=== PATIENT | female | born 1955 | race Caucasian/White ===

== ENCOUNTER 2021-02-11 10:06 | Outpatient (CLI) | payer MEDICARE, SELFPAY ==
--- NOTE | 2021-02-11 10:18 | MM_ITS ---
WS: [id number] Exam: [id number] Date/Time of Exam: 02/11/2021 10:22 AM Reason For Exam: SCREENING VIEWS: MLO and CC views both breasts. Comparison made with prior exam of 07/16/2004, 05/14/2013.. Findings: There was no sign of mass, architectural distortion or suspicious calcification in either breast. Fa tty MM/[id number] Impression: BI-RADS: 2-Benign FOLLOW-UP: 1 Year Follow-up This mammogram was also analyzed by the Computer Aided Detection System R2 Imag e Jewel Oliving Machine Operator.
== END 2021-02-11 10:07 | disposition home or self-care (01) ==
LOC: RADSHAW 10:14
PROVIDERS: PCP Family Medicine; Visit Provider Family Medicine
DX: Z12.31 Encounter for screening mammogram for malignant neoplasm of breast (principal)
CPT/HCPCS: 77067

== ENCOUNTER 2021-04-28 10:55 | Outpatient (CLI) | payer MEDICARE, SELFPAY ==
--- NOTE | 2021-04-28 11:00 | XR_ITS ---
WS: [id number] SCREENING DEXA SCAN [employer] CLINICAL INFORMATION: POST MENOPAUSAL COMPARISON: None. FINDINGS: The L1-L4 bone mineral density measures 1.082 g/cm2. This corresponds to a T score score of -0.8 and Z score of 0.0. Left femoral neck bone mineral density measures 0.996 g/cm2. This corresponds to a T score of -0.1 an d Z score of 0.6. Right femoral neck bone mineral density measures 0.948 g/cm2. This corresponds to a T score -0.5of an d Z score of 0.2. Mean femoral neck bone mineral density measures 0.972 g/cm2. This corresponds to a T score of -0.3 an d Z score of 0.4. XR/XR DEXA axial skeleton* [id number] IMPRESSION: Normal bone mineralization. Patient's FRAX calculated 10 year probability for major osteoporotic fracture i s 12.4 % and osteoporotic hip fracture is 0.8%.
== END 2021-04-28 10:56 | disposition home or self-care (01) ==
PROVIDERS: PCP Family Medicine; Visit Provider Physician Assistant
DX: Z78.0 Asymptomatic menopausal state (principal)
CPT/HCPCS: 77080

== ENCOUNTER 2021-09-17 06:00 | Outpatient (RCR) | payer MEDICARE, SELFPAY | END 2021-10-16 23:59 | disposition home or self-care (01) | LOC: SPT 06:00 | PROVIDERS: PCP Family Medicine; Referring Provider Family Medicine; Visit Provider Family Medicine | DX: M54.12 Radiculopathy, cervical region (principal) | CPT/HCPCS: 97110; 97162 ==

== ENCOUNTER 2021-10-17 | Outpatient (RCR) | payer MEDICARE, SELFPAY | END 2021-11-16 23:59 | disposition home or self-care (01) | LOC: SPT | PROVIDERS: PCP Family Medicine; Referring Provider Family Medicine; Visit Provider Family Medicine | DX: M54.12 Radiculopathy, cervical region (principal) | CPT/HCPCS: 97110 ==

== ENCOUNTER 2023-05-11 11:35 | Inpatient (IN) | payer MEDICARE, SELFPAY ==
[2023-05-11] VITALS (44 sets, daily range): BP systolic 95–181; BP diastolic 64–116; PULSE 98–136; RESP 14–30; TEMP 36.7; O2SAT 78–99; BMI 28.1; BMI 27.8
--- NOTE | 2023-05-11 11:35 | XRR_ITS ---
PROCEDURE INFORMATION: Exam: XR Chest Exam date and time: 05/11/2023 11:49 AM Age: 68 years old Clinical indication: Cough; Additional info: Dyspnea/cough TECHNIQUE: Imaging protocol: Radiologic exam of the chest. Views: 1 view. COMPARISON: CT angio chest PE protcl [id number] 11/03/2018 7:03 PM FINDINGS: Lungs: Unremarkable. No consolidation. Pleural spaces: Unremarkable. No pleural effusion. No pneumothorax. Heart/Mediastinum: Unremarkable. No cardiomegaly. Bones/joints: Unremarkable. XR/XR chest 1V portable [id number] IMPRESSION: No acute findings.
--- NOTE | 2023-05-11 11:42 | ECG_ITS ---
[facility] Test Date: 2023-05-11 Pat Name: Yoon Moss Department: Room: ICU03 Gender: Female Impression Printer: : [id number] Requested By: Chriss Gilliam Order Number: [id number] Reading MD: Cabrera Negrete M.D. Measurements Intervals [place] Rate: 126 P: 83 CO: 148 QRS: 53 QRSD: 91 T: 75 QT: 292 QTc: 423 Interpretive Statements SINUS TACHYCARDIA with occasional PVC SEPTAL MYOCARDIAL INFARCTION , PROBABLY OLD [40+ ms Q WAVE IN V1/V2] Compared to ECG 11/03/2018 22:57:14 Heart rate is sinus tachycardia with PVCs. Electronically Signed On 05-12-2023 14:20:54 DOMESTIC LAUNDRY WORKER by Cabrera Negrete M.D. [email or web address] general [email or web address] [email or web address]/[id number] f
--- NOTE | 2023-05-11 11:47 | ED_ITS ---
HPI - SOB/Dyspnea General: Chief Complaint: Shortness of Breath/Dyspnea Stated Complaint: sob Time Seen by Provider: 05/11/23 11:35 Source: patient History of Present Illness: HPI Narrative: 60-year-old female presents emergency room with shortness of breath. She was given DuoNebs and dexamethasone in route. She has a history of COPD for last 2 days she has been been progressively more short of breath she has some moderate productive cough. She has not had any vomiting or diarrhea or fever. MD elicited complaint: shortness of breath and cough Pertinent past history: COPD Timing: constant Severity: severe Exacerbating factors: exertion and coughing Relieving factors: oxygen, rest and bronchodilators Known history of: COPD Associated symptoms: Reports chest congestion, cough and diaphoresis; Deny abdominal pain, chest pain, dizziness, extremity pain, fever(s), hemoptysis, lightheadedness, myalgias, nausea, orthopnea, palpitations, paresthesias, polydipsia, polyuria, rash, sense of impending doom, syncope or vomiting Treatment prior to arrival: bronchodilator Related Data: Home oxygen amount: 2 liters Review of Systems Const: Reports: fatigue, malaise and diaphoresis; Denies: fever(s) or chills Card: Denies: chest pain, palpitations, lightheadedness, syncope or orthopnea Resp: Reports: dyspnea, non-productive cough, wheezing and chest congestion; Denies: hemoptysis GI: Denies: abdominal pain, nausea or vomiting : Denies: dysuria, urinary frequency or urinary urgency Musc: Denies: neck pain, back pain or extremity pain Skin/Breast: Denies: rash Neuro: Denies: dizziness Endo: Denies: polyuria or polydipsia PFSH ED PFSH: Medical History COPD (chronic obstructive pulmonary disease) Depression DM type 2 (diabetes mellitus, type 2) HLD (hyperlipidemia) HTN (hypertension) Thyroid disease Surgical History H/O: hysterectomy Hx of cholecystectomy Social History Smoking and tobacco/nicotine status: former use of tobacco/nicotine Physical Exam 2 Const: GENERAL APPEARANCE: cooperative and comfortable ORIENTATION/CONSCIOUSNESS: Yes awake, Yes oriented to person, Yes oriented to place and Yes oriented to time HENMT: COMMON NORMALS: normocephalic, atraumatic and hearing grossly normal bilaterally HEAD & SCALP: normocephalic and atraumatic Resp: COMMON NORMALS: normal respiratory effort, No retractions and No use of accessory muscles AUSCULTATION: rhonchi and wheezes Cardio: COMMON NORMALS: regular rhythm and No murmurs present (Cardio) RATE: tachycardic RHYTHM: regular rhythm GI: COMMON NORMALS: Soft to palpation and No hepatosplenomegaly present AUSCULTATION: Yes normoactive bowel sounds PALPATION: Yes Soft to palpation, No Tenderness to palpation present (GI), No Guarding due to palpation present (GI) and Yes No hepatosplenomegaly present Extremity: COMMON NORMALS: normal to inspection, capillary refill normal, no clubbing, cyanosis or edema, no calf tenderness and no pedal edema Neuro: SENSORIUM/ORIENTATION: Yes oriented to person, Yes oriented to place and Yes oriented to time Skin: COMMON NORMALS: no rashes or lesions noted GENERAL SKIN EXAM: no rashes or lesions noted Course Vital Signs: Vital signs: Vital Signs Pulse Rate 101 H 05/11/23 14:48 Respiratory Rate 14 05/11/23 14:40 Blood Pressure 181/116 05/11/23 11:35 Pulse Oximetry 97 05/11/23 14:57 Oxygen Delivery Me thod BiPAP 05/11/23 14:57 Oxygen Flow Rate 30 05/11/23 14:57 Fraction of Inspir ed Oxygen 30 05/11/23 14:46 MDM - SOB/Dyspnea Medical Decision Making Admit for COPD exacerbation cover with IV antibiotics. Aggressive pulmonary toilet and steroids discussed with hospitalist orders written Differential Diagnosis Likely acute exacerbation of chronic obstructive airways disease, congestive heart failure and community acquired pneumonia Medical Records I reviewed the patient's medical records. Lab Data I reviewed the patient's lab results. 05/11/23 11:25 05/11/23 11:25 Labs/Radiology: Radiology Impressions Chest X-Ray 05/11/23 11:35 IMPRESSION: No acute findings. Laboratory Results WBC 18.29 10^3/uL (3.29-11.43) H 05/11/23 11:25 RBC 5.20 10^6/uL (3.85-5.65) 05/11/23 11:25 Hgb 15.00 g/dL (11.27-16.99) 05/11/23 11:25 Hct 46.4 % (36-47) 05/11/23 11:25 MCV 89.2 fl (85-98) 05/11/23 11:25 MCH 28.8 pg (27-33) 05/11/23 11:25 MCHC 32.3 g/dL (30-55) 05/11/23 11:25 RDW 13.3 % (12.1-15.1) 05/11/23 11:25 Plt Count 358 10^3/cmm (157-399) 05/11/23 11:25 MPV 10.5 fL (7.4-10.4) H 05/11/23 11:25 Neut % (Auto) 70.6 % 05/11/23 11:25 Lymph % (Auto) 18.6 % 05/11/23 11:25 [place] % (Auto) 7.0 % 05/11/23 11:25 Eos % (Auto) 2.4 % 05/11/23 11:25 Baso % (Auto) 0.9 % 05/11/23 11:25 Neut # (Auto) 12.93 10^3/uL (1.8-7.7) H 05/11/23 11:25 Lymph # (Auto) 3.4 10^3/uL (0.8-4.8) 05/11/23 11:25 [place] # (Auto) 1.3 10^3/uL (0.2-0.9) H 05/11/23 11:25 Eos # (Auto) 0.4 10^3/uL (0.0-0.8) 05/11/23 11:25 Baso # (Auto) 0.2 10^3/uL (0.0-0.1) H 05/11/23 11:25 Nucleated RBC % (auto) 0 % 05/11/23 11:25 Nucleated RBCs # 0.0 /100WBC 05/11/23 11:25 Specimen Type Arterial 05/11/23 11:58 Sample Site Radial, left 05/11/23 11:58 ABG pH 7.18 (7.35-7.45) L* 05/11/23 11:58 ABG pCO2 58.8 mmHg (35-45) H 05/11/23 11:58 ABG pO2 239.0 mmHg (80.0-100.0) H 05/11/23 11:58 ABG PO2/FiO2 Ratio 0 05/11/23 11:58 ABG HCO3 21.7 mmol/L (22-26) L 05/11/23 11:58 ABG O2 Saturation > 100.0 05/11/23 11:58 ABG Base Excess -7.6 mmol/L (-2.0-2.0) L 05/11/23 11:58 Tim Test Pos 05/11/23 11:58 A-a O2 Gradient 14.8 mmHg (5-10) H 05/11/23 11:58 Hematocrit 44.4 % (37-47) 05/11/23 11:58 Hgb O2 Saturation 98.7 % (95-100) 05/11/23 11:58 Carboxyhemoglobin 1.1 %THgb (0.4-20.1) 05/11/23 11:58 Methemoglobin 0.4 % (0.4-1.5) 05/11/23 11:58 Total Hemoglobin 14.5 g/dL (12-16) 05/11/23 11:58 Sodium 139.0 mmol/L (131-143) 05/11/23 11:58 Potassium 4.8 mmol/L (3.5-5.0) 05/11/23 11:58 Glucose 301.0 mg/dL (70-115) H 05/11/23 11:58 Ionized Calcium 1.2 mmol/L (1.1-1.4) 05/11/23 11:58 O2 Delivery Device Bipap 05/11/23 11:58 FiO2 60.0 % 05/11/23 11:58 Biometric Screener ID glc 05/11/23 11:58 Sodium 139 mmol/L (136-145) 05/11/23 11:25 Potassium 4.8 mmol/L (3.5-5.1) 05/11/23 11:25 Chloride 103 mmol/L (98-107) 05/11/23 11:25 Carbon Dioxide 22 mmol/L (22-29) 05/11/23 11:25 Anion Gap 18.8 (5-19) 05/11/23 11:25 BUN 11 mg/dL (8-23) 05/11/23 11:25 Creatinine 0.7 mg/dL (0.5-0.9) 05/11/23 11:25 GFR Calculation 83.2 mL/min (90-130) L 05/11/23 11:25 Glucose 215 mg/dL (65-115) H 05/11/23 11:25 Calculated Osmolality 294 mOsm/kg (285-295) 05/11/23 11:25 Lactic Acid 5.5 mmol/L (0.5-2.2) H* 05/11/23 11:48 Calcium 9.6 mg/dL (8.5-10.5) 05/11/23 11:25 Total Bilirubin 0.4 mg/dL (0.15-1.2) 05/11/23 11:25 AST 26 U/L (0-32) 05/11/23 11:25 ALT 22 U/L (0-33) 05/11/23 11:25 Alkaline Phosphatase 98 U/L (35-105) 05/11/23 11:25 Total Protein 7.4 g/dL (6.6-8.7) 05/11/23 11:25 Albumin 4.7 g/dL (3.5-5.2) 05/11/23 11:25 Globulin 2.7 g/dL (1.3-4.6) 05/11/23 11:25 TSH 1.04 uIU/mL (0.27-4.20) 05/11/23 11:25 All radiology interpretation(s) finalized by discharge Discharge Plan Discharge Patient Disposition: Admitted As Inpatient Admit Provider: Chriss Gilliam Clinical Impression: COPD exacerbation, Acute respiratory failure with hypoxia and hypercapnia, Acute encephalopathy Condition: Stable Coding Level of Care Code ED Paper Goods Machine Operator for Ajay Miller
[2023-05-11] MEDS: ipratropium-albuterol 3 mL Neb INHALATION ×3 (11:49→19:36)
[2023-05-11] MEDS: LORazepam 2 mg/mL INJ 1 mL IVP (11:53)
[2023-05-11] MEDS: dexamethasone 10 mg/mL INJ IM (11:58)
[2023-05-11 11:59] LABS: Basophils # 0.2 10^3/uL (0.0-0.1); Basophils % 0.9 %; Eosinophils # 0.4 10^3/uL (0.0-0.8); Eosinophils % 2.4 %; Hematocrit 46.4 % (36-47); Lymphocytes # 3.4 10^3/uL (0.8-4.8); Lymphocytes % 18.6 %; Mean Corpuscular HGB Conc 32.3 g/dL (30-55); Mean Corpuscular Hemoglobin 28.8 pg (27-33); Mean Corpuscular Volume 89.2 fl (85-98); Mean Platelet Volume 10.5 fL (7.4-10.4); Monocytes # 1.3 10^3/uL (0.2-0.9); Neutrophils # 12.93 10^3/uL (1.8-7.7); Neutrophils % 70.6 %; Nucleated Red Blood Cells % 0 %; Platelet Count 358 10^3/cmm (157-399); Red Cell Distribution Width 13.3 % (12.1-15.1); White Blood Count 18.29 10^3/uL (3.29-11.43)
[2023-05-11 12:06] LABS: ABG PCO2 58.8 mmHg (35-45); Alveolar-Arterial Oxygen Gradi 14.8 mmHg (5-10); Arterial Blood Gas Hematocrit 44.4 % (37-47); Base Excess ABG -7.6 mmol/L (-2.0-2.0); Blood Gas Allen Test Pos; Blood Gas Operator Identificat glc; Blood Gas Sample Site Radial, left; Blood Gas Sample Type Arterial; Carboxyhemoglobin 1.1 %THgb (0.4-20.1); HCO3 ABG 21.7 mmol/L (22-26); HGB O2 Sat 98.7 % (95-100); Ionized Calcium Level - ABG 1.2 mmol/L (1.1-1.4); Methemoglobin 0.4 % (0.4-1.5); Oxygen Device BIPAP; Oxygen Saturation ABG > 100.0; PO2 FiO2 Ratio Arterial Blood 0; Potassium Level - ABG 4.8 mmol/L (3.5-5.0); Total Hemoglobin 14.5 g/dL (12-16)
[2023-05-11 12:13] LABS: ABG PH Result 7.18 (7.35-7.45)
[2023-05-11 12:18] LABS: Alanine Aminotransferase 22 U/L (0-33); Albumin Level 4.7 g/dL (3.5-5.2); Alkaline Phosphatase 98 U/L (35-105); Anion Gap 18.8 (5-19); Aspartate Amino Transferase 26 U/L (0-32); Blood Urea Nitrogen 11 mg/dL (8-23); Calcium 9.6 mg/dL (8.5-10.5); Carbon Dioxide 22 mmol/L (22-29); Chloride 103 mmol/L (98-107); Globulin 2.7 g/dL (1.3-4.6); Glomerular Filtration Rate 83.2 mL/min (90-130); Glucose 215 mg/dL (65-115); Osmolality Calculated 294 mOsm/kg (285-295); Potassium 4.8 mmol/L (3.5-5.1); Sodium 139 mmol/L (136-145); Total Bilirubin 0.4 mg/dL (0.15-1.2); Total Protein 7.4 g/dL (6.6-8.7)
[2023-05-11 12:24] LABS: Lactic Sepsis W/Reflex 5.5 mmol/L (0.5-2.2)
[2023-05-11] MEDS: cefTRIAXone 1,000 MG in sodium chloride 0.9% (plus) 50 ML 100 MG IV (12:45)
[2023-05-11] MEDS: azithromycin 500 MG in sodium chloride 0.9% 250 ML 250 MG IV (12:45)
[2023-05-11 13:44] LABS: Reflex Lactate Order REFLEX LACTIC ORDERD
--- NOTE | 2023-05-11 13:58 | P.HP_ITS ---
Providers/Chief Complaint Admitting Physician: Chriss Gilliam Primary Care Provider: Riley Salcedo MD Chief Complaint: sob History of Present Illness 68-year-old lady with history of COPD was brought into the hospital due to worsening dyspnea, cough productive of white sputum, found to be hypoxic saturating 78%, normally not on any oxygen or BiPAP. ABG with respiratory a cidosis, hypoxia. Required starting on BiPAP support. Discussion was had between her and physician as well as her family with consideration of intubation, she allegedly made a statement of declining, however, it was noted that she was not fully understanding the discussion. Currently she is unable to provide history, she answers a few yes or no questions, but unclear that the answers are appropriate. Asks to go home . Denies pain or discomfort. Has been dyspneic, coughing, denies chest pain or pressure. No hemoptysis. No extremity edema. Review of Systems Const: Denies: fever(s), chills, body aches or malaise ENMT: Denies: throat pain Card: Denies: chest pain, edema, pre-syncope or dyspnea on exertion Resp: Reports: dyspnea and productive cough; Denies: change in phlegm color or hemoptysis GI: Denies: abdominal pain, nausea, vomiting, diarrhea, constipation, hematochezia or melena : Denies: flank pain, urinary frequency or hematuria Musc: Denies: back pain, joint swelling or joint redness Skin/Breast: Denies: rash or new lesions Neuro: Reports: confusion; Denies: headache(s), numbness in extremities, weakness in extremities, dizziness or seizure-like activity Medications/Allergies Home Medications Medication Instructions Recorded Confirmed Last Taken Type benazepril 40 mg tablet 40 mg PO DAILY 05/11/23 05/11/23 Unknown History cholecalciferol (vitamin D3) 50 50 mcg PO DAILY 05/11/23 05/11/23 Unknown History mcg (2,000 unit) capsule (Vitamin D3) felodipine 10 mg tablet,extended 10 mg PO DAILY 05/11/23 05/11/23 Unknown History release 24 hr fluoxetine 40 mg capsule 40 mg PO DAILY 05/11/23 05/11/23 Unknown History lisinopril 10 mg tablet 10 mg PO DAILY 05/11/23 05/11/23 Unknown History metformin 500 mg tablet,extended 500 mg PO BID 05/11/23 05/11/23 Unknown History release 24 hr nitrofurantoin 100 mg capsule 100 mg PO BID UTI 05/11/23 05/11/23 Unknown History prednisone 20 mg tablet 20 mg PO BID 05/11/23 05/11/23 Unknown History Allergies Allergy/AdvReac Type Severity Reaction Status Date / Time No Known Allergies Allergy Verified 05/11/23 11:46 PFSH Acute PFSH: Medical History COPD (chronic obstructive pulmonary disease) Depression DM type 2 (diabetes mellitus, type 2) HLD (hyperlipidemia) HTN (hypertension) Thyroid disease Surgical History H/O: hysterectomy Hx of cholecystectomy Social History Smoking and tobacco/nicotine status: former use of tobacco/nicotine Vitals/I&O/Wt Last Vital Signs Pulse 112 H 05/11/23 13:22 Resp 30 H 05/11/23 11:52 BP 181/116 05/11/23 11:35 Pulse Ox 99 05/11/23 13:22 O2 Del Method BiPAP 05/11/23 11:52 O2 Flow Rate 10 05/11/23 11:35 FiO2 40 05/11/23 13:22 Weight last 48 hrs Weight 81.647 kg Physical Exam Narrative: Daughter at bedside. Const: GENERAL APPEARANCE: cooperative ORIENTATION/CONSCIOUSNESS: Yes confused HENMT: COMMON NORMALS: oropharynx normal Neck/C-Spine: COMMON NORMALS: no JVD Resp: AUSCULTATION: wheezes Cardio: COMMON NORMALS: no JVD, regular rhythm, S1 normal heart sound present, S2 normal heart sound present and No murmurs present (Cardio) RHYTHM: regular rhythm HEART SOUNDS: S1 normal heart sound present and S2 normal heart sound present GI: COMMON NORMALS: Normal to inspection, nondistended, normoactive bowel sounds present, Soft to palpation and non-tender PALPATION: Yes Soft to palpation Extremity: COMMON NORMALS: no joint enlargement and no pedal edema Neuro: COMMON NORMALS: patient oriented x3 and moves all extremities SENSORIUM/ORIENTATION: Yes alert Skin: COMMON NORMALS: no rashes or lesions noted GENERAL SKIN EXAM: no rashes or lesions noted Data 05/11/23 11:25 05/11/23 11:25 Micro: Microbiology 05/11/23 11:48 Blood Culture - Preliminary Blood SPECIMEN COLLECTED 05/11/23 11:50 Blood Culture - Preliminary Blood SPECIMEN COLLECTED A&P Assessment and plan (1) Acute respiratory failure with hypoxia and hypercapnia: Acute respiratory failure with hypoxia and hypercapnia, respiratory acidosis secondary to severe exacerbation of COPD with dyspnea, cough, diminished air entry. White purulent appearing sputum. Not normally on oxygen or BiPAP. Required starting BiPAP support. Noted ABG 7.18/32.8. Initial oxygen saturation reported 78%. Reviewed vitals, CBC, ABG, chemistry, lactic acid, chest x-ray, ER documentation, discussed with ER physician. Continue BiPAP support, RT assess and treat. Discussed with her and her daughter regarding risks with IV steroid, will provide Solu-Medrol. Continue ceftriaxone. Obtain PCR viral panel, sputum culture. N.p.o. with sips and chips and meds for now. She is currently mildly somnolent as she was very anxious and received Ativan in ER. Admit to ICU. Recheck ABG. FiO2 adjusted, target saturation 88-92%. (2) COPD exacerbation: Severe exacerbation as above. (3) Acute encephalopathy: Acute metabolic encephalopathy with hypercapnic hypoxic respiratory failure. Treatment as above. Check COVID-19 PCR viral panel. Will additionally obtain UA, check TSH. (4) Lactic acidosis: Suspect secondary to respiratory failure, increased respiratory effort, on presentation respirations up to 30 breaths/min. Repeat lactic acid pending. (5) Goals of care, counseling/discussion: On discussion with her family in case of worsening respiratory failure, would be agreeable to intubation. Patient reportedly was hesitant on prior discussion but it appears she was not fully understanding the severity of her situation as per ER physician assessment. Currently is somewhat confused as well. Daughter states that her and her family had gone through a severe illness with their father, patient's before he states that based on that situation patient would have wanted attempted resuscitation. Plan DM2: Accu-Cheks, sliding scale insulin. Consistent carb diet after diet resumed. HTN: Monitor blood pressures HLD Thyroid disease: Check TSH Requesting to confirm home medications. Attestations Medical Necessity Statement*: Admission of over 2 midnights is going to be needed for assessment management of acute respiratory failure with hypoxia and hypercapnia with severe COPD exacerbation and acute encephalopathy. Coding Level of Care Code Critical Care >/= 30 minutes Critical care time (in minutes): 35 The high probability of a clinically significant, sudden or life threatening deterioration, as referenced in this documentation, required my full and direct attention, intervention and personal management. The critical care time shown is in addition to time spent performing any reported separately billable procedures and includes the following: [x] Data and vital sign review and interpretation [x ] Patient assessment, examination and intervention [x] Medication orders and management [x] Patient/Family updates as able [x] Care Coordination and Documentation. Diagnoses Acute respiratory failure with hypoxia and hypercapnia J96.01; J96.02 COPD exacerbation J44.1 Acute encephalopathy G93.40 Lactic acidosis E87.20 Goals of care, counseling/discussion Z71.89
[2023-05-11] MEDS: heparin 5,000 unit/mL INJ 1 mL 5000 UNIT SUBCUT (14:51)
[2023-05-11] MEDS: sodium chloride 0.9% 1,000 ML 100 ML IV ×2 (14:51→23:41)
[2023-05-11] MEDS: pantoprazole 40 mg SDV IVP (14:51)
[2023-05-11 15:10] LABS: Thyroid Stimulating Hormone 1.04 uIU/mL (0.27-4.20)
[2023-05-11 15:12] LABS: Lactic Acid level (Lactate) 3.1 mmol/L (0.5-2.2)
[2023-05-11 15:44] LABS: ABG PCO2 42.5 mmHg (35-45); ABG PH Result 7.34 (7.35-7.45); Arterial Blood Gas Hematocrit 42.2 % (37-47); Base Excess ABG -2.8 mmol/L (-2.0-2.0); Blood Gas Allen Test Pos; Blood Gas Operator Identificat GD; Blood Gas Sample Site Radial, left; Blood Gas Sample Type Arterial; HCO3 ABG 22.9 mmol/L (22-26); Oxygen Device BIPAP; PO2 ABG 90.4 mmHg (80.0-100.0); PO2 FiO2 Ratio Arterial Blood 0
[2023-05-11 15:46] LABS: Influenza A by IFA negative (Negative); Influenza B by IFA negative (Negative)
[2023-05-11 17:13] LABS: Adenovirus Not Detected (NOT DETECT); Chlamydia Pneumoniae Not Detected (NOT DETECT); Coronavirus 229E,HKU1,NL63,OC4 Not Detected (NOT DETECT); Human Metapneumovirus Not Detected (NOT DETECT); Human Rhinovirus/Enterovirus Not Detected (NOT DETECT); Influenza A Not Detected (NOT DETECT); Influenza A H1 Not Detected (NOT DETECT); Influenza A H1-2009 Not Detected (NOT DETECT); Influenza A H3 Not Detected (NOT DETECT); Influenza B Not Detected (NOT DETECT); Mycoplasma Pneumoniae Not Detected (NOT DETECT); Parainfluenza Virus Type 1 Not Detected (NOT DETECT); Parainfluenza Virus Type 2 Not Detected (NOT DETECT); Parainfluenza Virus Type 3 Not Detected (NOT DETECT); Parainfluenza Virus Type 4 Not Detected (NOT DETECT); Respiratory Syncytial Virus A Not Detected (NOT DETECT); Respiratory Syncytial Virus B Not Detected (NOT DETECT); SARS-COV-2 Not Detected (NOT DETECT)
[2023-05-11] MEDS: methylPREDNISolone sod succ 40 mg/mL INJ IVP (18:36)
[2023-05-12] VITALS (54 sets, daily range): BP systolic 96–132; BP diastolic 5–79; PULSE 72–101; RESP 13–26; TEMP 36.7–36.8; O2SAT 85–98
[2023-05-12 00:01] LABS: Glucose Point of Care 180 mg/dL (70-110)
[2023-05-12] MEDS: ipratropium-albuterol 3 mL Neb INHALATION ×4 (01:48→20:13)
[2023-05-12] MEDS: heparin 5,000 unit/mL INJ 1 mL 5000 UNIT SUBCUT ×2 (02:05→15:16)
[2023-05-12] MEDS: methylPREDNISolone sod succ 40 mg/mL INJ IVP ×3 (02:05→19:58)
[2023-05-12 05:53] LABS: Basophils % 0.1 %; Eosinophils % 0.1 %; Lymphocytes # 0.6 10^3/uL (0.8-4.8); Lymphocytes % 4.5 %; Mean Corpuscular Hemoglobin 29.2 pg (27-33); Mean Corpuscular Volume 97.3 fl (85-98); Mean Platelet Volume 11.9 fL (7.4-10.4); Monocytes # 0.2 10^3/uL (0.2-0.9); Monocytes % 1.8 %; Neutrophils # 11.58 10^3/uL (1.8-7.7); Neutrophils % 92.9 %; Nucleated Red Blood Cells % 0 %; Platelet Count 112 10^3/cmm (157-399); Red Blood Count 4.42 10^6/uL (3.85-5.65); Red Cell Distribution Width 13.7 % (12.1-15.1); White Blood Count 12.46 10^3/uL (3.29-11.43)
[2023-05-12 06:14] LABS: Glucose Point of Care 202 mg/dL (70-110)
[2023-05-12 06:51] LABS: Anion Gap 15.7 (5-19); Blood Urea Nitrogen 15 mg/dL (8-23); Carbon Dioxide 21 mmol/L (22-29); Chloride 106 mmol/L (98-107); Glomerular Filtration Rate 99.4 mL/min (90-130); Glucose 214 mg/dL (65-115); Osmolality Calculated 293 mOsm/kg (285-295); Potassium 4.7 mmol/L (3.5-5.1); Sodium 138 mmol/L (136-145)
[2023-05-12] MEDS: acetaminophen 325 mg Tablet 650 MG PO ×2 (08:41→20:03)
[2023-05-12] MEDS: cefTRIAXone 1,000 MG in sodium chloride 0.9% (plus) 50 ML 100 MG IV (08:42)
--- NOTE | 2023-05-12 08:48 | PC.SOCIAL ---
IMM Update pg 2 of IMM updated and reviewed w/ patient. Copy provided and copy dated and initialed and placed in chart.
[2023-05-12 11:23] LABS: Glucose Point of Care 211 mg/dL (70-110)
--- NOTE | 2023-05-12 14:56 | PC.NURSE ---
Attempted to call report to [place] and informed the nurse to receive the pt was passing meds and will call back.
[2023-05-12] MEDS: pantoprazole 40 mg SDV IVP (15:16)
--- NOTE | 2023-05-12 15:49 | PC.NURSE ---
Report called to Latonya in [place].
--- NOTE | 2023-05-12 16:06 | PC.NURSE ---
Transferred pt to room 250-2 without complications.
--- NOTE | 2023-05-12 16:49 | PM.PN ---
Subjective Subjective: She is improving. Breathing is improving, but she states that got quite severely dyspneic with exertion getting up to the restroom, was worried that she might collapse. States prefers to stay in bed for the time being. Vitals/I&O/Wt Last Vital Signs Temp 98.3 F 05/12/23 16:00 Pulse 101 H 05/12/23 16:00 Resp 18 05/12/23 16:00 BP 127/5 05/12/23 16:00 Pulse Ox 94 05/12/23 16:00 O2 Del Method Nasal Cannula 05/12/23 16:00 O2 Flow Rate 2 05/12/23 16:24 FiO2 30 05/12/23 01:48 05/12/23 05/12/23 05/12/23 06:59 14:59 22:59 Intake Total 883.333 / 6369.383 5678 / 1000 50 / 1050 Balance 883.333 / 6555.589 6039 / 1000 50 / 1050 Weight last 48 hrs Weight 88.042 kg Weight 80.739 kg Weight 81.647 kg Physical Exam Const: COMMON NORMALS: patient oriented x3 and alert GENERAL APPEARANCE: cooperative ORIENTATION/CONSCIOUSNESS: Yes awake and Yes confused HENMT: COMMON NORMALS: oropharynx normal Neck/C-Spine: COMMON NORMALS: no JVD Resp: COMMON NORMALS: normal respiratory effort AUSCULTATION: wheezes Cardio: COMMON NORMALS: no JVD, regular rhythm, S1 normal heart sound present, S2 normal heart sound present and No murmurs present (Cardio) RHYTHM: regular rhythm HEART SOUNDS: S1 normal heart sound present and S2 normal heart sound present GI: COMMON NORMALS: Normal to inspection, nondistended, normoactive bowel sounds present, Soft to palpation and non-tender PALPATION: Yes Soft to palpation Extremity: COMMON NORMALS: no joint enlargement and no pedal edema Neuro: COMMON NORMALS: patient oriented x3 and moves all extremities SENSORIUM/ORIENTATION: Yes alert Skin: COMMON NORMALS: no rashes or lesions noted GENERAL SKIN EXAM: no rashes or lesions noted Data 05/12/23 04:45 05/12/23 06:28 Micro: Microbiology 05/11/23 11:48 Blood Culture - Preliminary Blood NEGATIVE TO DATE 05/11/23 11:50 Blood Culture - Preliminary Blood NEGATIVE TO DATE A&P Assessment and plan (1) Acute respiratory failure with hypoxia and hypercapnia: Improving. Still with respiratory failure, severe exertional intolerance, wheezing, hypoxia requiring 2 L nasal cannula, not normally on oxygen. Continue ceftriaxone, Solu-Medrol, breathing treatments. At risk of hyperglycemia, hypertension, confusion with IV steroid. Monitor glucose, vitals. Mental status. Oxygen support, wean down as tolerating. BiPAP support as needed, although so far has weaned off. Acute encephalopathy so far has improved. Moved to medical surgical floor. Reviewed vitals, CBC, BMP, blood culture negative to date, sputum culture pending, nothing on Gram stain so far. Trial of diet. May require oxygen on discharge. Discussed with hospice case manager. (2) COPD exacerbation: Severe exacerbation as above. (3) Acute encephalopathy: So far improved. Monitor mental status. UA pending. Acute metabolic encephalopathy with hypercapnic hypoxic respiratory failure. Treatment as above. Reviewed COVID viral panel. Reviewed TSH. (4) Lactic acidosis: Reviewed lactic acid. Lactic acidosis improved. (5) Goals of care, counseling/discussion: On discussion with her family in case of worsening respiratory failure, would be agreeable to intubation. Patient reportedly was hesitant on prior discussion but it appears she was not fully understanding the severity of her situation as per ER physician assessment. Currently is somewhat confused as well. Daughter states that her and her family had gone through a severe illness with their father, patient's before he states that based on that situation patient would have wanted attempted resuscitation. Plan DM2: Accu-Cheks, sliding scale insulin. Consistent carb diet after diet resumed. HTN: Monitor blood pressures. So far not elevated. HLD Thyroid disease: Reviewed TSH, unremarkable Attestations Medical Necessity Statement*: Continue admission for assessment management of improving respiratory failure, severe COPD exacerbation. Diagnoses Acute respiratory failure with hypoxia and hypercapnia J96.01; J96.02 COPD exacerbation J44.1 Acute encephalopathy G93.40 Lactic acidosis E87.20 Goals of care, counseling/discussion Z71.89
[2023-05-12 16:59] LABS: Glucose Point of Care 196 mg/dL (70-110)
[2023-05-12 22:36] LABS: Glucose Point of Care 192 mg/dL (70-110)
[2023-05-13] VITALS (7 sets, daily range): BP systolic 115–132; BP diastolic 66–80; PULSE 69–92; RESP 16–18; TEMP 36.4–36.6; O2SAT 93–98
[2023-05-13] MEDS: ipratropium-albuterol 3 mL Neb INHALATION ×2 (02:18→07:44)
[2023-05-13] MEDS: heparin 5,000 unit/mL INJ 1 mL 5000 UNIT SUBCUT (02:48)
[2023-05-13] MEDS: methylPREDNISolone sod succ 40 mg/mL INJ IVP ×2 (02:49→10:40)
[2023-05-13 05:02] LABS: Basophils % 0.1 %; Hematocrit 38.6 % (36-47); Lymphocytes # 0.6 10^3/uL (0.8-4.8); Mean Corpuscular HGB Conc 31.6 g/dL (30-55); Mean Corpuscular Hemoglobin 28.7 pg (27-33); Mean Corpuscular Volume 90.8 fl (85-98); Mean Platelet Volume 10.9 fL (7.4-10.4); Monocytes # 0.4 10^3/uL (0.2-0.9); Monocytes % 2.8 %; Neutrophils # 12.78 10^3/uL (1.8-7.7); Neutrophils % 92.4 %; Nucleated Red Blood Cells % 0 %; Platelet Count 202 10^3/cmm (157-399); Red Blood Count 4.25 10^6/uL (3.85-5.65); Red Cell Distribution Width 13.8 % (12.1-15.1); White Blood Count 13.82 10^3/uL (3.29-11.43)
[2023-05-13 05:28] LABS: Anion Gap 15.6 (5-19); Blood Urea Nitrogen 23 mg/dL (8-23); Calcium 8.9 mg/dL (8.5-10.5); Carbon Dioxide 22 mmol/L (22-29); Chloride 105 mmol/L (98-107); Glomerular Filtration Rate 99.4 mL/min (90-130); Glucose 203 mg/dL (65-115); Osmolality Calculated 295 mOsm/kg (285-295); Potassium 4.6 mmol/L (3.5-5.1); Sodium 138 mmol/L (136-145)
[2023-05-13 07:34] LABS: Glucose Point of Care 212 mg/dL (70-110)
[2023-05-13] MEDS: cefTRIAXone 1,000 MG in sodium chloride 0.9% (plus) 50 ML 100 MG IV (08:03)
[2023-05-13 10:58] LABS: Glucose Point of Care 205 mg/dL (70-110)
--- NOTE | 2023-05-13 13:14 | PM.DCS ---
Discharge Providers Date of Admission: 05/11/23 13:13 Date of Discharge: May 13, 2023 Attending Provider at Admission: Chriss Gilliam Attending Provider at Discharge: Chriss Gilliam Primary Care Provider: Riley Salcedo MD Diagnoses at Discharge Discharge Diagnosis (1) Acute respiratory failure with hypoxia and hypercapnia: Status: Acute (2) COPD exacerbation: Status: Acute (3) Acute encephalopathy: Status: Acute (4) Lactic acidosis: Status: Acute (5) Goals of care, counseling/discussion: Status: Acute Reason for Visit Reason for Visit: sob Hospital Course Hospital Course Pleasant 68-year-old lady with history of COPD, other, but it is presented to the hospital due to worsening dyspnea, productive cough, with hypoxia, hypercapnia with acute respiratory failure on presentation, respiratory acidosis, required BiPAP support, oxygen support, was treated with IV steroids, ceftriaxone, breathing treatments, required Ativan on presentation due to severe anxiety. Her mental status, oxygenation and hypercapnia gradually improved. Weaned off BiPAP, and today is off oxygen support entirely. She is feeling much better. She was dyspneic with exertion yesterday, but today with ambulation she is no longer feeling short of breath, and feels improved significantly enough to comfortably return home. She states that she has inhalers that she uses at home for COPD. She is given additional prescription for albuterol as needed. She is here for additional assessment with sleep study with concern for underlying sleep apnea. Physical Exam Narrative: Awake, alert, pleasant, interactive, lucid. Reports she is feeling much better. She is gotten up and ambulated in the room, breathing is much better. Feels ready to return home. Const: COMMON NORMALS: patient oriented x3 and alert GENERAL APPEARANCE: cooperative ORIENTATION/CONSCIOUSNESS: Yes awake and Yes confused HENMT: COMMON NORMALS: oropharynx normal Neck/C-Spine: COMMON NORMALS: no JVD Resp: COMMON NORMALS: normal respiratory effort and clear to auscultation bilaterally AUSCULTATION: clear to auscultation bilaterally and wheezes Cardio: COMMON NORMALS: no JVD, regular rhythm, S1 normal heart sound present, S2 normal heart sound present and No murmurs present (Cardio) RHYTHM: regular rhythm HEART SOUNDS: S1 normal heart sound present and S2 normal heart sound present GI: COMMON NORMALS: Normal to inspection, nondistended, normoactive bowel sounds present, Soft to palpation and non-tender PALPATION: Yes Soft to palpation Extremity: COMMON NORMALS: no joint enlargement and no pedal edema Neuro: COMMON NORMALS: patient oriented x3 and moves all extremities SENSORIUM/ORIENTATION: Yes alert Skin: COMMON NORMALS: no rashes or lesions noted GENERAL SKIN EXAM: no rashes or lesions noted Discharge Data Studies Completed and Pending Completed Studies During Hospitalization Category Date Time Status XR chest 1V portable [id number] Stat Exams 05/11/23 11:35 Completed Pending at discharge Category Date Time Status Basic Metabolic Panel AM LABS Lab 05/14/23 04:00 Ordered Blood Culture Stat Lab 05/11/23 11:48 Results Complete Blood Count w/Auto AM LABS Lab 05/14/23 04:00 Ordered Sputum Culture and Gram Stain Stat Lab 05/12/23 16:15 Results Radiology Impressions Chest X-Ray 05/11/23 11:35 IMPRESSION: No acute findings. Laboratory Results WBC 13.82 10^3/uL (3.29-11.43) H 05/13/23 03:51 RBC 4.25 10^6/uL (3.85-5.65) 05/13/23 03:51 Hgb 12.20 g/dL (11.27-16.99) 05/13/23 03:51 Hct 38.6 % (36-47) 05/13/23 03:51 MCV 90.8 fl (85-98) D 05/13/23 03:51 MCH 28.7 pg (27-33) 05/13/23 03:51 MCHC 31.6 g/dL (30-55) D 05/13/23 03:51 RDW 13.8 % (12.1-15.1) 05/13/23 03:51 Plt Count 202 10^3/cmm (157-399) D 05/13/23 03:51 MPV 10.9 fL (7.4-10.4) H 05/13/23 03:51 Neut % (Auto) 92.4 % 05/13/23 03:51 Lymph % (Auto) 4.0 % 05/13/23 03:51 Perry % (Auto) 2.8 % 05/13/23 03:51 Eos % (Auto) 0.0 % 05/13/23 03:51 Baso % (Auto) 0.1 % 05/13/23 03:51 Neut # (Auto) 12.78 10^3/uL (1.8-7.7) H 05/13/23 03:51 Lymph # (Auto) 0.6 10^3/uL (0.8-4.8) L 05/13/23 03:51 Perry # (Auto) 0.4 10^3/uL (0.2-0.9) 05/13/23 03:51 Eos # (Auto) 0.0 10^3/uL (0.0-0.8) 05/13/23 03:51 Baso # (Auto) 0.0 10^3/uL (0.0-0.1) 05/13/23 03:51 Nucleated RBC % (auto) 0 % 05/13/23 03:51 Nucleated RBCs # 0.0 /100WBC 05/13/23 03:51 Specimen Type Arterial 05/11/23 15:25 Sample Site Radial, left 05/11/23 15:25 ABG pH 7.34 (7.35-7.45) L 05/11/23 15:25 ABG pCO2 42.5 mmHg (35-45) 05/11/23 15:25 ABG pO2 90.4 mmHg (80.0-100.0) 05/11/23 15:25 ABG PO2/FiO2 Ratio 0 05/11/23 15:25 ABG HCO3 22.9 mmol/L (22-26) 05/11/23 15:25 ABG O2 Saturation > 100.0 05/11/23 11:58 ABG Base Excess -2.8 mmol/L (-2.0-2.0) L 05/11/23 15:25 Tim Test Pos 05/11/23 15:25 A-a O2 Gradient 14.8 mmHg (5-10) H 05/11/23 11:58 Hematocrit 42.2 % (37-47) 05/11/23 15:25 Hgb O2 Saturation 98.7 % (95-100) 05/11/23 11:58 Carboxyhemoglobin 1.1 %THgb (0.4-20.1) 05/11/23 11:58 Methemoglobin 0.4 % (0.4-1.5) 05/11/23 11:58 Total Hemoglobin 14.5 g/dL (12-16) 05/11/23 11:58 Sodium 139.0 mmol/L (131-143) 05/11/23 11:58 Potassium 4.8 mmol/L (3.5-5.0) 05/11/23 11:58 Glucose 301.0 mg/dL (70-115) H 05/11/23 11:58 Ionized Calcium 1.2 mmol/L (1.1-1.4) 05/11/23 11:58 O2 Delivery Device Bipap 05/11/23 15:25 FiO2 30.0 % 05/11/23 15:25 Rn Bsn ID Gd 05/11/23 15:25 Sodium 138 mmol/L (136-145) 05/13/23 03:51 Potassium 4.6 mmol/L (3.5-5.1) 05/13/23 03:51 Chloride 105 mmol/L (98-107) 05/13/23 03:51 Carbon Dioxide 22 mmol/L (22-29) 05/13/23 03:51 Anion Gap 15.6 (5-19) 05/13/23 03:51 BUN 23 mg/dL (8-23) 05/13/23 03:51 Creatinine 0.6 mg/dL (0.5-0.9) 05/13/23 03:51 GFR Calculation 99.4 mL/min (90-130) 05/13/23 03:51 Glucose 203 mg/dL (65-115) H 05/13/23 03:51 POC Glucose 205 mg/dL (70-110) H 05/13/23 10:44 Calculated Osmolality 295 mOsm/kg (285-295) 05/13/23 03:51 Lactic Acid 5.5 mmol/L (0.5-2.2) H* 05/11/23 11:48 Lactic Acid (Sepsis) 3.1 mmol/L (0.5-2.2) H 05/11/23 14:27 Calcium 8.9 mg/dL (8.5-10.5) 05/13/23 03:51 Total Bilirubin 0.4 mg/dL (0.15-1.2) 05/11/23 11:25 AST 26 U/L (0-32) 05/11/23 11:25 ALT 22 U/L (0-33) 05/11/23 11:25 Alkaline Phosphatase 98 U/L (35-105) 05/11/23 11:25 Total Protein 7.4 g/dL (6.6-8.7) 05/11/23 11:25 Albumin 4.7 g/dL (3.5-5.2) 05/11/23 11:25 Globulin 2.7 g/dL (1.3-4.6) 05/11/23 11:25 TSH 1.04 uIU/mL (0.27-4.20) 05/11/23 11:25 Coronavirus 229E (PCR) Not detected (NOT DETECT) 05/11/23 14:57 Influenza Type A Ag negative (Negative) 05/11/23 14:57 Influenza Type B Ag negative (Negative) 05/11/23 14:57 SARS-CoV-2 (PCR) Not detected (NOT DETECT) 05/11/23 14:57 Vitals Last Vital Signs Temp 97.8 F 05/13/23 11:58 Pulse 85 05/13/23 11:58 Resp 18 05/13/23 11:58 BP 132/80 05/13/23 11:58 Pulse Ox 94 05/13/23 11:58 O2 Del Method Room Air 05/13/23 11:58 O2 Flow Rate 2 05/13/23 07:47 FiO2 30 05/13/23 02:20 Discharge Plan Discharge Patient Disposition: Home Condition: Stable Prescriptions: New cefdinir 300 mg capsule 300 mg PO BID 5 Days Qty: 10 0RF prednisone 20 mg tablet 20 mg PO BID 4 Days Qty: 8 0RF albuterol sulfate 90 mcg/actuation aerosol powdr breath activated 2 inh inhalation QID PRN (Reason: shortness of breath or wheezing) Qty: 1 0RF Continued benazepril 40 mg tablet 40 mg PO DAILY felodipine 10 mg tablet extended release 24 hr 10 mg PO DAILY fluoxetine 40 mg capsule 40 mg PO DAILY metformin 500 mg tablet extended release 24 hr 500 mg PO BID lisinopril 10 mg Tablet 10 mg PO DAILY prednisone 20 mg Tablet 20 mg PO BID Vitamin D3 50 mcg (2,000 unit) Capsule 50 mcg PO DAILY nitrofurantoin 100 mg Capsule 100 mg PO BID Rx Instructions: must administer with a meal/food Discharge Orders: Discharge Order (Routine); Ordered 05/13/23 Ordered By: Chriss Gilliam Other Ambulatory Orders: Sleep Study/Titration (Routine) Timeframe: 2 Weeks Facility: [facility] - Location: [facility] Ordered By: Chriss Gilliam Referrals: Riley Salcedo MD [Primary Care Provider] - 4-7 days Discharge Diet: Diabetic Patient Instructions: Opioid Safety Activity Restrictions/Additional Instructions: Follow-up with your primary provider for reassessment of continued improvement from COPD exacerbation. Return to the hospital in case of new worsening or new concerning symptoms. Discharge Attestations Time Spent in Discharge Care*: greater than 30 min Quality Metrics Clinical Quality Measures [ No reported AMI, CVA or VTE this stay] Coding Level of Care Code 51703 Total time (in minutes) for Discharge: 35 Diagnoses Acute respiratory failure with hypoxia and hypercapnia J96.01; J96.02 COPD exacerbation J44.1 Acute encephalopathy G93.40 Lactic acidosis E87.20 Goals of care, counseling/discussion Z71.89
== END 2023-05-13 13:33 | disposition home or self-care (01) | DRG 189 ==
LOC: ER 11:52 → ICU 13:58 → MEDSURG 05-12 16:08
PROVIDERS: Admitting Provider Internal Medicine; Emergency Provider Family Medicine; PCP Family Medicine; Visit Provider Internal Medicine
DX: J96.01 Acute respiratory failure with hypoxia (principal); G93.41 Metabolic encephalopathy; J44.1 Chronic obstructive pulmonary disease with (acute) exacerbation; E87.29 Other acidosis; J96.02 Acute respiratory failure with hypercapnia; Z87.891 Personal history of nicotine dependence; F32.A Depression, unspecified; E11.9 Type 2 diabetes mellitus without complications; E78.5 Hyperlipidemia, unspecified; F41.9 Anxiety disorder, unspecified
CPT/HCPCS: 36415; 36416; 36600; 71045; 80048; 80051; 80053; 82330; 82803; 82805; 82962; 83605; 84443; 85025; 87040; 87070; 87205; 87635; 87804; 93005; 93010; 94640; 94660; 94664; 96365; 96367; 96372; 96375; 96376; 99291; C9113; J0456; J0696; J1100; J1644; J2060; J2920; J7030; J7050

== ENCOUNTER 2023-07-11 15:00 | Outpatient (CLI) | payer MEDICARE, SELFPAY | END 2023-07-11 15:01 | disposition home or self-care (01) | LOC: SLEEP 07-13 09:06 | PROVIDERS: PCP Family Medicine; Visit Provider Family Medicine | DX: G47.33 Obstructive sleep apnea (adult) (pediatric) (principal); G47.10 Hypersomnia, unspecified | CPT/HCPCS: G0399 ==

== ENCOUNTER 2023-08-04 10:48 | Outpatient (CLI) | payer MEDICARE, SELFPAY ==
--- NOTE | 2023-08-04 10:54 | CT_ITS ---
WS: [id number] LDCT LUNG CANCER SCREENING HISTORY: NICOTINE DEPENDENCE,CIGARETTES TECHNIQUE: Axial imaging performed from the apices to 1 cm below the costophrenic angles. Coronal and sagittal reformats are submitted with axial MIP series. All CT scans at [facility] use at least one of these dose optimization techniques: automated exposure control; mA and/or kV adjustment per patient size (includes targeted exams where dose is matched to clinical indication); or iterativ e reconstruction. DLP: 88.89 mGy.cm DIvol: Mean CTDIvol: 1.80 (mGy) COMPARISON: 11/03/[address] Diagnostic quality: Satisfactory Lungs: Pulmonary hyperexpansion. No pulmonary mass or nodule. No pneumonia. No endobronchial lesions. Heart: Normal size heart with no pericardial effusion.. Moderate coronary artery calcification. Other findings: Minimal atherosclerosis aorta. Normal size pulmonary artery. No adenopathy. Large hia kartik hernia. No adrenal mass. Prior cholecystectomy. Splenic granulomata. IMPRESSION: CT/CT lung screening [id number] LUNG-RADS: 1-Negative FOLLOW UP: 12 Month: Continue annual screening with LDCT OTHER FINDINGS (S MODIFIER): None.
--- NOTE | 2023-08-04 10:54 | MM_ITS ---
WS: [id number] Bilateral screening 3D tomosynthesis digital mammogram, 08/04/2023 Clinical Data: SCREENING Comparison: 02/11/2021, 05/14/2013, 07/16/2004. Findings: The breast parenchymal pattern shows fat replacement. No spiculated masses or clustered calcification s are seen. There are no secondary signs of carcinoma. Impression: 1. Negative bilateral mammogram unchanged. 2. Recommend annual screening mammograms. MM/[place] [id number] BIRADS: 1-Negative FOLLOW UP: 1 Year Follow-up The CAD thread checker was used.
== END 2023-08-04 10:49 | disposition home or self-care (01) ==
PROVIDERS: PCP Family Medicine; Visit Provider Family Medicine
DX: Z12.31 Encounter for screening mammogram for malignant neoplasm of breast (principal); Z12.2 Encounter for screening for malignant neoplasm of respiratory organs; F17.210 Nicotine dependence, cigarettes, uncomplicated
CPT/HCPCS: 71271; 77063; 77067

== ENCOUNTER 2024-02-13 15:27 | Outpatient (CLI) | payer MEDICARE, SELFPAY ==
--- NOTE | 2024-02-13 15:30 | XR_ITS ---
WS: [email or web address] SCREENING DEXA SCAN [place] CLINICAL INFORMATION: postmenopausal COMPARISON: 2020 FINDINGS: The L1-L4 bone mineral density measures 1.106 g/cm2. This corresponds to a T score score of -0.6 and Z score of 0.2. Left femoral neck bone mineral density measures 0.945 g/cm2. This corresponds to a T score of -0.5 an d Z score of 0.3. Right femoral neck bone mineral density measures 0.891 g/cm2. This corresponds to a T score -0.9of an d Z score of -0.1. Mean femoral neck bone mineral density measures 0.918 g/cm2. This corresponds to a T score of -0.7 an d Z score of 0.1. XR/XR DEXA axial skeleton* 05120 IMPRESSION: Normal bone mineralization. Patient's FRAX calculated 10 year probability for major osteoporotic fracture i s 14.0% and osteoporotic hip fracture is 1.5%. Bone mineral density lumbar spine increased 2.2% Bone mineral density femoral necks decreased -5.6%
== END 2024-02-13 15:28 | disposition home or self-care (01) ==
LOC: RAD 15:27
PROVIDERS: PCP Family Medicine; Visit Provider Family Medicine
DX: Z78.0 Asymptomatic menopausal state (principal)
CPT/HCPCS: 77080

== ENCOUNTER 2024-08-05 13:22 | Outpatient (CLI) | payer MEDICARE, SELFPAY ==
--- NOTE | 2024-08-05 | MM_ITS ---
WS: [id number] VIEWS: MLO and CC views both breasts. 3D digital tomosynthesis is also included in this exam. Comparison made with prior exam of 05/14/2013, 02/11/2021, 07/16/2004, 08/04/2023.. Findings: The breasts are almost entirely fatty. No sign of suspicious mass, tumor calcification or architectural distortion. MM/MM scr BI tomosynthesis [id number] Impression: BI-RADS: 1 - Negative. FOLLOW-UP: 1 Year Follow-up This mammogram was also analyzed by the Computer Aided Detection System [employer].
== END 2024-08-05 13:23 | disposition home or self-care (01) ==
PROVIDERS: PCP Family Medicine; Visit Provider Family Medicine
DX: Z12.31 Encounter for screening mammogram for malignant neoplasm of breast (principal); R92.313 Mammographic fatty tissue density, bilateral breasts
CPT/HCPCS: 77063; 77067

== ENCOUNTER 2024-08-08 11:18 | Outpatient (CLI) | payer MEDICARE, SELFPAY ==
--- NOTE | 2024-08-08 11:29 | CT_ITS ---
WS: [email or web address] LDCT LUNG CANCER SCREENING TECHNIQUE: Noncontrast CT of the chest with coronal and sagittal reformatted images. CLINICAL INFORMATION: NICOTINE DEPENDENCE COMPARISON: CT 08/04/2023 DLP: 96.60 mGy.cm DIvol: Mean CTDIvol: 2.10 (mGy) All CT scans at [facility] use at least one of these dose optimization techniques: automated exposure control; mA and/or kV adjustment per patient size (includes targeted exams where dose is matched to clinical indication); or iterative reconstruction. FINDINGS: Hyperinflation. No new suspicious pulmonary parenchymal abnormalities. Calcified granuloma LEFT upper lobe. A few tiny scattered micronodules. No mediastinal or hilar lymphadenopathy. Dense coronary calcification. Mild aortic calcification. Large esophageal hiatal hernia. Prior cholecystectomy. Splenic granulomas. Adrenal glands are normal. Splenic artery calcifications. Mild thoracic curve. CT/CT lung screening [id number] IMPRESSION: LUNG-RADS: 2-Benign Appearance or Behavior FOLLOW UP: 12 Month: Continue annual screening with LDCT
== END 2024-08-08 11:19 | disposition home or self-care (01) ==
LOC: RAD 11:20
PROVIDERS: PCP Family Medicine; Visit Provider Family Medicine
DX: Z12.2 Encounter for screening for malignant neoplasm of respiratory organs (principal); F17.210 Nicotine dependence, cigarettes, uncomplicated; R91.8 Other nonspecific abnormal finding of lung field; J84.10 Pulmonary fibrosis, unspecified; I25.10 Atherosclerotic heart disease of native coronary artery without angina pectoris; I70.0 Atherosclerosis of aorta; K44.9 Diaphragmatic hernia without obstruction or gangrene; Z90.49 Acquired absence of other specified parts of digestive tract; D73.89 Other diseases of spleen; I70.8 Atherosclerosis of other arteries; M43.8X4 Other specified deforming dorsopathies, thoracic region
CPT/HCPCS: 71271